=== PATIENT | male | born 1950 ===

== ENCOUNTER → 2021-07-11 08:37 | Outpatient (REF) | payer MEDICARE, SELFPAY | LOC: ANHLAB 08:37 | PROVIDERS: PCP Family Medicine; Visit Provider Nurse Practitioner | DX: D03.4 Melanoma in situ of scalp and neck (principal) | CPT/HCPCS: 88305; 88342 ==

== ENCOUNTER → 2021-08-03 08:45 | Outpatient (REF) | payer MEDICARE, SELFPAY | LOC: ANHLAB 08:45 | PROVIDERS: PCP Family Medicine; Visit Provider Nurse Practitioner | DX: C43.4 Malignant melanoma of scalp and neck (principal) | CPT/HCPCS: 88305; 88342 ==

== ENCOUNTER → 2021-11-14 11:15 | Outpatient (REF) | payer MEDICARE, SELFPAY | LOC: ANHLAB 11:15 | PROVIDERS: PCP Family Medicine; Visit Provider Nurse Practitioner | DX: L82.1 Other seborrheic keratosis (principal) | CPT/HCPCS: 88305 ==

== ENCOUNTER 2022-02-15 07:00 | Outpatient (NON) | payer MEDICARE, SELFPAY | END 2022-02-15 07:01 | disposition home or self-care (01) | PROVIDERS: PCP Family Medicine; Visit Provider Nurse Practitioner | DX: D22.5 Melanocytic nevi of trunk (principal) | CPT/HCPCS: 88305 ==

== ENCOUNTER 2022-12-27 12:44 | Outpatient (NON) | payer MEDICARE, SELFPAY | END 2022-12-27 12:45 | disposition home or self-care (01) | LOC: ANHLAB 12-28 12:48 | PROVIDERS: PCP Family Medicine; Visit Provider Nurse Practitioner | DX: D22.5 Melanocytic nevi of trunk (principal) | CPT/HCPCS: 88305 ==